=== PATIENT | male | born 1930 | race Caucasian/White ===

== ENCOUNTER 2018-03-22 16:01 | Inpatient (IN) | payer OTHER, MEDICARE ==
[2018-03-22 16:32] LABS: ADD MAN DIFF? NO
[2018-03-22 16:39] LABS: BASOPHILS % 0.4 % (0.0-2.0); EOSINOPHILS # 0.1 10^3/ul (0.0-0.5); EOSINOPHILS % 1.2 % (0.0-7.0); HEMOGLOBIN 11.4 g/dl (14.0-18.0); LYMPHOCYTES # 0.7 10^3/ul (0.8-2.9); LYMPHOCYTES % 12.7 % (15.0-51.0); MEAN CORPUSCULAR HEMOGLOBIN 31.1 pg (29.0-33.0); MEAN CORPUSCULAR HGB CONC 32.6 g/dl (32.0-37.0); MEAN CORPUSCULAR VOLUME 95.6 fl (82.0-101.0); MEAN PLATELET VOLUME 10.3 fl (7.4-10.4); MONOCYTE # 0.3 10^3/ul (0.3-0.9); MONOCYTES % 6.4 % (0.0-11.0); NEUTROPHIL # 4.1 10^3/ul (1.6-7.5); NEUTROPHILS % 79.1 % (39.0-77.0); PLATELET COUNT 117 10^3/UL (140-415); RED BLOOD COUNT 3.66 10^6/ul (4.70-6.10)
[2018-03-22 16:39] LABS: WHITE BLOOD COUNT 5.1 10^3/ul (4.8-10.8)
[2018-03-22] MEDS: SOD CHLORIDE 0.9% 1,000 ML IV (16:49)
[2018-03-22 16:58] LABS: ALANINE AMINOTRANSFERASE 14 IU/L (13-69); ALBUMIN 3.6 g/dl (3.3-4.9); ALBUMIN/GLOBULIN RATIO 1.16; ALKALINE PHOSPHATASE 74 IU/L (42-121); ANION GAP 15 (5-13); ASPARTATE AMINO TRANSFERASE 36 IU/L (15-46); BLOOD UREA NITROGEN 22 mg/dl (7-20); CALCIUM 8.5 mg/dl (8.4-10.2); CARBON DIOXIDE 25 mmol/L (21-31); CHLORIDE 101 mmol/L (97-110); CREATININE 1.11 mg/dl (0.61-1.24); GLUCOSE 237 mg/dl (70-220); SODIUM 141 mmol/L (135-144); TOTAL PROTEIN 6.7 g/dl (6.1-8.1)
[2018-03-22 17:02] LABS: INR 1.35; PROTIME 16.8 Sec (11.9-14.9); PT RATIO 1.3
[2018-03-22 17:09] LABS: B-TYPE NATRIURETIC PEPTIDE 718 PG/ML (0-450); TROPONIN-I < 0.012 ng/ml (0.000-0.120)
[2018-03-22 17:14] LABS: ADD UMIC YES; UR ASCORBIC ACID NEGATIVE (NEGATIVE); UR BACTERIA MANY /HPF (NONE SEEN); UR BILIRUBIN (Dip) NEGATIVE (NEGATIVE); UR BLOOD (Dip) 2+ mg/dL (NEGATIVE); UR CLARITY SLIGHTLY CLOUDY (CLEAR); UR COLOR AMBER (YELLOW); UR GLUCOSE (Dip) NEGATIVE (NEGATIVE); UR KETONES (Dip) TRACE mg/dL (NEGATIVE); UR LEUKOCYTE ESTERASE (Dip) 2+ Leu/ul (NEGATIVE); UR NITRITE (Dip) NEGATIVE (NEGATIVE); UR RBC 77 /HPF (0-5); UR SPECIFIC GRAVITY (Dip) 1.017 (1.003-1.030); UR TOTAL PROTEIN (Dip) NEGATIVE (NEGATIVE); UR UROBILINOGEN (Dip) NEGATIVE (NEGATIVE); UR WBC 53 /HPF (0-5)
[2018-03-22] MEDS ORDERED: ACETAMINOPHEN 325 MG TAB PO (19:00)
[2018-03-22] MEDS ORDERED: NACL 0.9% 3 ML SYG IV (19:00)
[2018-03-22] MEDS ORDERED: DOCUSATE SODIUM 100 MG CAP PO (19:00)
[2018-03-22] MEDS ORDERED: morphine 2 MG INJ IV (19:00)
[2018-03-22] MEDS ORDERED: ONDANSETRON 4 MG INJ IV (19:00)
[2018-03-22] MEDS: TAMSULOSIN (SR) 0.4 MG CAP PO (21:00)
[2018-03-22] MEDS: FAMOTIDINE 20 MG TAB PO (21:00)
[2018-03-22] MEDS ORDERED: CARBIDOPA/LEVODOPA 50-200 (CR) TAB PO (21:00)
[2018-03-22] MEDS: AMANTADINE 100 MG CAP PO (21:00)
[2018-03-22] MEDS: DEXTROSE 5%-0.45% NACL 1,000 ML IV (21:29)
[2018-03-22] MEDS: ATORVASTATIN 20 MG TAB PO (21:37)
[2018-03-22] MEDS: ENTACAPONE 200 MG TAB PO (22:48)
[2018-03-22] MEDS: CARBIDOPA/LEVODOPA 25-100 (CR) TAB PO (22:49)
[2018-03-22] MEDS: ZOLPIDEM 5 MG TAB PO (22:53)
[2018-03-23] MEDS ORDERED: ALBUMIN HUMAN 5% 250 ML INJ (07:00)
[2018-03-23] MEDS ORDERED: CEFAZOLIN 1 GM INJ (07:00)
[2018-03-23] MEDS ORDERED: METOPROLOL 5 MG INJ (07:00)
[2018-03-23] MEDS ORDERED: ALBUMIN HUMAN 25% 100 ML INJ (07:00)
[2018-03-23] MEDS ORDERED: DESFLURANE 15 MIN (07:00)
[2018-03-23] MEDS ORDERED: NA BICARBONATE 8.4% 50 ML SYG (07:00)
[2018-03-23] MEDS ORDERED: ROCURONIUM 50 MG INJ ×2 (07:00→14:52)
[2018-03-23] MEDS ORDERED: PROPOFOL 1000 MG INJ (07:00)
[2018-03-23] MEDS ORDERED: CA CHLORIDE 10% 10 ML SYRINGE (07:00)
[2018-03-23] MEDS ORDERED: ETOMIDATE 20 MG INJ (07:00)
[2018-03-23] MEDS: DEXTROSE 5%-0.45% NACL 1,000 ML IV ×2 (08:04→23:07)
[2018-03-23] MEDS: LISINOPRIL 5 MG TAB PO (09:00)
[2018-03-23] MEDS: ATENOLOL 50 MG TAB PO (09:00)
[2018-03-23] MEDS: AMANTADINE 100 MG CAP PO ×2 (11:50→22:52)
[2018-03-23] MEDS: ENTACAPONE 200 MG TAB PO ×4 (11:50→22:54)
[2018-03-23] MEDS: CARBIDOPA/LEVODOPA 25-100 (CR) TAB PO ×4 (11:51→22:54)
[2018-03-23] MEDS: PRAMIPEXOLE 0.25 MG TAB PO (11:51)
[2018-03-23] MEDS ORDERED: FENTAnyl 50 MCG/ML VIAL (14:49)
[2018-03-23] MEDS ORDERED: MIDAZOLAM 1 MG/ML 2 ML INJ (14:50)
[2018-03-23] MEDS ORDERED: ONDANSETRON 4 MG INJ (14:51)
[2018-03-23] MEDS ORDERED: SUCCINYLCHOLINE CHLORIDE 100 MG/5 ML SYG IV (14:52)
[2018-03-23] MEDS ORDERED: PROPOFOL 20 ML (14:52)
[2018-03-23] MEDS ORDERED: LIDOCAINE 2% (SDV) 5 ML INJ (14:52)
[2018-03-23] MEDS ORDERED: morphine SULFATE/PF (10 MG/10 ML) INJ (16:20)
[2018-03-23] MEDS ORDERED: EPINEPHrine 1 MG INJ (16:21)
[2018-03-23] MEDS: TRANEXAMIC ACID 1,000 MG in NS 100 ML INTRA-OP X1 IVPB (17:00)
[2018-03-23] MEDS: VANCOMYCIN 1 GM (PMX) 250 ML IVPB (17:00)
[2018-03-23] MEDS: TRANEXAMIC ACID 1,000 MG in NS 100 ML PRE-OP X1 IVPB (17:00)
[2018-03-23] MEDS ORDERED: DOPamine-D5W 1.6 MG/ML 250 ML (18:44)
[2018-03-23] MEDS ORDERED: PHENYLephrine 10 MG INJ (18:55)
[2018-03-23] MEDS: SOD CHLORIDE 0.9% 250 ML IV* (18:56)
[2018-03-23 19:33] LABS: Allen Test ACCEPTAB; Arterial Base Excess -1.2 mmol/L (-3.0-3); Arterial Blood Gas Oxygen Sat 99.1 mmHG (95.0-100.0); Arterial COHb 0.3 % (0.0-3.0); Arterial Fraction of Oxyhgb 98.4 % (93.0-99.0); Arterial HCO3 22.4 mmol/L (22.0-26.0); Arterial MetHb 0.4 % (0.0-1.5); Arterial pCO2 33.1 mmhg (35-45); MODE VENT - ANESTH; Site Right Radial
[2018-03-23 19:35] LABS: ADD MAN DIFF? NO
[2018-03-23 19:43] LABS: ABNORMAL IP MESSAGE 1; BASOPHILS % 0.5 % (0.0-2.0); EOSINOPHILS # 0.1 10^3/ul (0.0-0.5); EOSINOPHILS % 1.8 % (0.0-7.0); HEMATOCRIT 25.1 % (42.0-52.0); HEMOGLOBIN 8.4 g/dl (14.0-18.0); LYMPHOCYTES # 0.9 10^3/ul (0.8-2.9); LYMPHOCYTES % 24.6 % (15.0-51.0); MEAN CORPUSCULAR HEMOGLOBIN 32.1 pg (29.0-33.0); MEAN CORPUSCULAR HGB CONC 33.5 g/dl (32.0-37.0); MEAN CORPUSCULAR VOLUME 95.8 fl (82.0-101.0); MEAN PLATELET VOLUME 10.6 fl (7.4-10.4); MONOCYTE # 0.2 10^3/ul (0.3-0.9); MONOCYTES % 6.3 % (0.0-11.0); NEUTROPHIL # 2.5 10^3/ul (1.6-7.5); NEUTROPHILS % 66.5 % (39.0-77.0); PLATELET COUNT 88 10^3/UL (140-415); POSITIVE DIFF @See below; RED BLOOD COUNT 2.62 10^6/ul (4.70-6.10); RED CELL DISTRIBUTION WIDTH 12.8 % (11.5-14.5)
[2018-03-23 19:43] LABS: WHITE BLOOD COUNT 3.8 10^3/ul (4.8-10.8)
[2018-03-23 19:57] LABS: ALANINE AMINOTRANSFERASE 17 IU/L (13-69); ALBUMIN 3.8 g/dl (3.3-4.9); ALBUMIN/GLOBULIN RATIO 1.65; ALKALINE PHOSPHATASE 60 IU/L (42-121); ANION GAP 11 (5-13); ASPARTATE AMINO TRANSFERASE 30 IU/L (15-46); BILIRUBIN,INDIRECT 0.4 mg/dl (0-1.1); BILIRUBIN,TOTAL 1.1 mg/dl (0.2-1.3); BLOOD UREA NITROGEN 12 mg/dl (7-20); CALCIUM 10.3 mg/dl (8.4-10.2); CARBON DIOXIDE 24 mmol/L (21-31); CHLORIDE 108 mmol/L (97-110); CREATININE 0.69 mg/dl (0.61-1.24); GLUCOSE 115 mg/dl (70-220); POTASSIUM 3.3 mmol/L (3.5-5.1); SODIUM 143 mmol/L (135-144); TOTAL PROTEIN 6.1 g/dl (6.1-8.1)
[2018-03-23 19:58] LABS: INR 1.39; PROTIME 17.2 Sec (11.9-14.9); PT RATIO 1.3
[2018-03-23 19:59] LABS: PARTIAL THROMBOPLASTIN TIME 41.6 Sec (23.0-35.0)
[2018-03-23] MEDS ORDERED: MAGNESIUM HYDROXIDE 30ML CUP PO (21:00)
[2018-03-23] MEDS ORDERED: HYDROmorphONE 1 MG/ML SYG IV (21:00)
[2018-03-23] MEDS ORDERED: BISACODYL 10 MG SUPP PR (21:00)
[2018-03-23] MEDS ORDERED: NALOXONE (0.4 MG/ML) INJ IV (21:00)
[2018-03-23] MEDS ORDERED: NACL 0.9% 3 ML SYG IV (21:00)
[2018-03-23] MEDS ORDERED: oxyCODONE 5 MG TAB PO ×3 (21:00)
[2018-03-23] MEDS ORDERED: NA PHOSPHATE/BIPHOS 133 ML ENEMA PR (21:00)
[2018-03-23] MEDS ORDERED: SENNA/DOCUSATE NA (8.6MG/50MG) TAB PO (21:00)
[2018-03-23] MEDS ORDERED: PHENYLephrine (100 MCG/ML) 5ML SYG (21:07)
[2018-03-23 21:20] LABS: MAGNESIUM 2.2 mg/dl (1.7-2.5)
[2018-03-23 21:32] LABS: TROPONIN-I 0.013 ng/ml (0.000-0.120)
[2018-03-23] MEDS: METOPROLOL 5 MG INJ IV ×3 (21:51→22:36)
[2018-03-23] MEDS ORDERED: morphine 4 MG/ML VIAL IV (22:00)
[2018-03-23] MEDS: POTASSIUM CHLORIDE 100 ML IVPB (22:06)
[2018-03-23] MEDS: CEFAZOLIN 2 GM/50 ML (PMX) 50 ML IVPB (22:13)
[2018-03-23] MEDS: ACETAMINOPHEN 1000MG/100ML IV 100 ML IVPB (22:50)
[2018-03-23] MEDS: ASPIRIN 325 MG TAB PO (22:52)
[2018-03-23] MEDS: DOCUSATE SODIUM 100 MG CAP PO (22:53)
[2018-03-23] MEDS: GABAPENTIN 300 MG CAP PO (22:54)
[2018-03-23] MEDS: FAMOTIDINE 20 MG TAB PO (22:54)
[2018-03-23] MEDS: METOPROLOL 25 MG TAB PO (23:04)
[2018-03-23] MEDS: ATORVASTATIN 40 MG TAB PO (23:11)
[2018-03-23] MEDS: SOD CHLORIDE 0.9% 1,000 ML IV (23:12)
[2018-03-23] MEDS: TAMSULOSIN (SR) 0.4 MG CAP PO (23:12)
[2018-03-23 23:27] LABS: IMMEDIATE SPIN CROSSMATCH 1 3
[2018-03-24] MEDS: POTASSIUM CHLORIDE 100 ML IVPB (00:25)
[2018-03-24] MEDS ORDERED: PROPOFOL 100 ML IV (01:30)
[2018-03-24] MEDS: PROPOFOL 100 ML IV (02:15)
[2018-03-24] MEDS: PHENYLephrine 40 MG in DEXTROSE 5% 246 ML IV (03:12)
[2018-03-24 03:20] LABS: Arterial Base Excess -6.7 mmol/L (-3.0-3); Arterial Blood Gas Oxygen Sat 99.2 mmHG (95.0-100.0); Arterial COHb 0.3 % (0.0-3.0); Arterial Fraction of Oxyhgb 98.5 % (93.0-99.0); Arterial HCO3 18.5 mmol/L (22.0-26.0); Arterial MetHb 0.4 % (0.0-1.5); MODE VENT - AC; Site A-Line
[2018-03-24 04:56] LABS: ADD MAN DIFF? NO
[2018-03-24 04:58] LABS: WHITE BLOOD COUNT 4.3 10^3/ul (4.8-10.8)
[2018-03-24 04:58] LABS: ABNORMAL IP MESSAGE 1; BASOPHILS % 0.2 % (0.0-2.0); HEMATOCRIT 27.7 % (42.0-52.0); HEMOGLOBIN 9.1 g/dl (14.0-18.0); LYMPHOCYTES # 0.2 10^3/ul (0.8-2.9); LYMPHOCYTES % 4.2 % (15.0-51.0); MEAN CORPUSCULAR HEMOGLOBIN 30.5 pg (29.0-33.0); MEAN CORPUSCULAR HGB CONC 32.9 g/dl (32.0-37.0); MONOCYTE # 0.2 10^3/ul (0.3-0.9); MONOCYTES % 4.4 % (0.0-11.0); NEUTROPHIL # 3.9 10^3/ul (1.6-7.5); PLATELET COUNT 95 10^3/UL (140-415); POSITIVE DIFF @See below; RED BLOOD COUNT 2.98 10^6/ul (4.70-6.10); RED CELL DISTRIBUTION WIDTH 13.9 % (11.5-14.5)
[2018-03-24 05:24] LABS: ANION GAP 10 (5-13); BLOOD UREA NITROGEN 15 mg/dl (7-20); CALCIUM 8.6 mg/dl (8.4-10.2); CARBON DIOXIDE 21 mmol/L (21-31); CHLORIDE 109 mmol/L (97-110); CREATININE 0.73 mg/dl (0.61-1.24); GLUCOSE 231 mg/dl (70-220); POTASSIUM 5.2 mmol/L (3.5-5.1); SODIUM 140 mmol/L (135-144)
[2018-03-24 05:30] LABS: INR 1.36; PROTIME 16.9 Sec (11.9-14.9); PT RATIO 1.3
[2018-03-24 05:34] LABS: TROPONIN-I 0.014 ng/ml (0.000-0.120)
[2018-03-24] MEDS: ACETAMINOPHEN 1000MG/100ML IV 100 ML IVPB ×2 (05:46→12:24)
[2018-03-24] MEDS: CEFAZOLIN 2 GM/50 ML (PMX) 50 ML IVPB ×2 (05:46→12:31)
[2018-03-24] MEDS: PANTOPRAZOLE (EC) 40 MG TAB PO (06:13)
[2018-03-24] MEDS: VANCOMYCIN 1 GM (PMX) 250 ML IVPB ×2 (06:46→17:19)
[2018-03-24] MEDS: DEXTROSE 5%-0.45% NACL 1,000 ML IV (07:49)
[2018-03-24] MEDS: CARBIDOPA/LEVODOPA 25-100 (CR) TAB PO ×4 (08:46→20:42)
[2018-03-24] MEDS: ASPIRIN 81 MG TAB PO (08:46)
[2018-03-24] MEDS: ENTACAPONE 200 MG TAB PO ×4 (08:47→20:43)
[2018-03-24] MEDS: DOCUSATE SODIUM 100 MG CAP PO ×2 (08:47→20:42)
[2018-03-24] MEDS: PRAMIPEXOLE 0.25 MG TAB PO (08:48)
[2018-03-24] MEDS: SOD CHLORIDE 0.9% 1,000 ML IV ×2 (08:58→20:55)
[2018-03-24] MEDS: METOPROLOL 25 MG TAB PO (09:00)
[2018-03-24] MEDS: LISINOPRIL 5 MG TAB PO (09:00)
[2018-03-24] MEDS: ATENOLOL 50 MG TAB PO (09:00)
[2018-03-24] MEDS: AMANTADINE 100 MG CAP PO ×2 (10:17→20:42)
[2018-03-24 13:09] LABS: Allen Test ACCEPTAB; Arterial Base Excess -2.6 mmol/L (-3.0-3); Arterial Blood Gas Oxygen Sat 98.3 mmHG (95.0-100.0); Arterial COHb 0.3 % (0.0-3.0); Arterial Fraction of Oxyhgb 97.7 % (93.0-99.0); Arterial HCO3 21.5 mmol/L (22.0-26.0); Arterial MetHb 0.3 % (0.0-1.5); Arterial pCO2 34.4 mmhg (35-45); Blood Gas PS 10; MODE VENT - CPAP; Site Right Radial
[2018-03-24] MEDS: ZOLPIDEM 5 MG TAB PO (20:42)
[2018-03-24] MEDS: ATORVASTATIN 40 MG TAB PO (20:42)
[2018-03-24] MEDS: FAMOTIDINE 20 MG TAB PO (20:42)
[2018-03-24] MEDS: TAMSULOSIN (SR) 0.4 MG CAP PO (20:43)
[2018-03-24] MEDS: GABAPENTIN 300 MG CAP PO (20:43)
[2018-03-24] MEDS ORDERED: ONDANSETRON 4 MG INJ IV (21:00)
[2018-03-24] MEDS: ACETAMINOPHEN 500 MG TAB PO (22:54)
[2018-03-25] MEDS: DEXTROSE 5%-0.45% NACL 1,000 ML IV (01:27)
[2018-03-25 04:54] LABS: ADD MAN DIFF? NO
[2018-03-25 05:00] LABS: WHITE BLOOD COUNT 3.4 10^3/ul (4.8-10.8)
[2018-03-25 05:00] LABS: ABNORMAL IP MESSAGE 1; BASOPHILS % 0.3 % (0.0-2.0); EOSINOPHILS # 0.1 10^3/ul (0.0-0.5); EOSINOPHILS % 1.5 % (0.0-7.0); HEMATOCRIT 24.7 % (42.0-52.0); HEMOGLOBIN 8.2 g/dl (14.0-18.0); LYMPHOCYTES # 0.5 10^3/ul (0.8-2.9); MEAN CORPUSCULAR HEMOGLOBIN 30.8 pg (29.0-33.0); MEAN CORPUSCULAR HGB CONC 33.2 g/dl (32.0-37.0); MEAN CORPUSCULAR VOLUME 92.9 fl (82.0-101.0); MEAN PLATELET VOLUME 10.3 fl (7.4-10.4); MONOCYTE # 0.3 10^3/ul (0.3-0.9); MONOCYTES % 7.7 % (0.0-11.0); NEUTROPHIL # 2.6 10^3/ul (1.6-7.5); NEUTROPHILS % 75.4 % (39.0-77.0); PLATELET COUNT 104 10^3/UL (140-415); POSITIVE DIFF @See below; RED BLOOD COUNT 2.66 10^6/ul (4.70-6.10); RED CELL DISTRIBUTION WIDTH 14.2 % (11.5-14.5)
[2018-03-25 05:18] LABS: LYMPHOCYTES % 14.8 % (15.0-51.0)
[2018-03-25 05:19] LABS: INR 1.33; PROTIME 16.6 Sec (11.9-14.9); PT RATIO 1.3
[2018-03-25 05:20] LABS: ANION GAP 6 (5-13); BLOOD UREA NITROGEN 11 mg/dl (7-20); CALCIUM 8.3 mg/dl (8.4-10.2); CARBON DIOXIDE 26 mmol/L (21-31); CHLORIDE 111 mmol/L (97-110); CREATININE 0.66 mg/dl (0.61-1.24); GLUCOSE 94 mg/dl (70-220); POTASSIUM 3.7 mmol/L (3.5-5.1); SODIUM 143 mmol/L (135-144)
[2018-03-25] MEDS: PANTOPRAZOLE (EC) 40 MG TAB PO (05:27)
[2018-03-25] MEDS: ACETAMINOPHEN 500 MG TAB PO ×3 (05:27→21:58)
[2018-03-25] MEDS: SOD CHLORIDE 0.9% 1,000 ML IV (07:06)
[2018-03-25] MEDS: PRAMIPEXOLE 0.25 MG TAB PO (08:46)
[2018-03-25] MEDS: ENTACAPONE 200 MG TAB PO ×4 (08:46→20:44)
[2018-03-25] MEDS: AMANTADINE 100 MG CAP PO ×2 (08:46→20:43)
[2018-03-25] MEDS: ASPIRIN 81 MG TAB PO (08:46)
[2018-03-25] MEDS: DOCUSATE SODIUM 100 MG CAP PO ×2 (08:46→20:44)
[2018-03-25] MEDS: METOPROLOL 25 MG TAB PO ×2 (08:47→20:43)
[2018-03-25] MEDS: CARBIDOPA/LEVODOPA 25-100 (CR) TAB PO ×4 (10:16→20:44)
[2018-03-25 11:26] LABS: HEMOGLOBIN A1C 5.5 % (0-5.9)
[2018-03-25] MEDS ORDERED: GLUCOSE GEL 15 GRAM TUBE PO ×2 (11:30)
[2018-03-25] MEDS ORDERED: GLUCOSE GEL 15 GRAM TUBE BUCCAL (11:30)
[2018-03-25] MEDS ORDERED: GLUCAGON 1 MG INJ IM (11:30)
[2018-03-25] MEDS ORDERED: DEXTROSE 50% 50 ML SYRINGE IV ×2 (11:30)
[2018-03-25] MEDS: INSULIN ASPART [NOVOLOG] 3 ML PEN SC ×3 (13:00→20:50)
[2018-03-25] MEDS: FAMOTIDINE 20 MG TAB PO (20:43)
[2018-03-25] MEDS: ZOLPIDEM 5 MG TAB PO (20:43)
[2018-03-25] MEDS: ATORVASTATIN 40 MG TAB PO (20:43)
[2018-03-25] MEDS: GABAPENTIN 300 MG CAP PO (20:44)
[2018-03-25] MEDS: TAMSULOSIN (SR) 0.4 MG CAP PO (20:44)
[2018-03-25] MEDS ORDERED: morphine LIQ (10 MG/5 ML) CUP PO (22:00)
[2018-03-25] MEDS: DIPHENHYDRAMINE 50 MG INJ IV (22:06)
[2018-03-26] MEDS: INSULIN ASPART [NOVOLOG] 3 ML PEN SC ×6 (00:45→23:32)
[2018-03-26] MEDS: PANTOPRAZOLE (EC) 40 MG TAB PO (05:08)
[2018-03-26] MEDS: ACETAMINOPHEN 500 MG TAB PO ×3 (05:09→21:47)
[2018-03-26 05:13] LABS: ADD MAN DIFF? NO
[2018-03-26 05:19] LABS: ABNORMAL IP MESSAGE 1; BASOPHILS % 0.5 % (0.0-2.0); EOSINOPHILS # 0.2 10^3/ul (0.0-0.5); EOSINOPHILS % 4.1 % (0.0-7.0); HEMATOCRIT 29.3 % (42.0-52.0); HEMOGLOBIN 9.5 g/dl (14.0-18.0); LYMPHOCYTES # 0.6 10^3/ul (0.8-2.9); LYMPHOCYTES % 15.9 % (15.0-51.0); MEAN CORPUSCULAR HEMOGLOBIN 30.4 pg (29.0-33.0); MEAN CORPUSCULAR HGB CONC 32.4 g/dl (32.0-37.0); MEAN CORPUSCULAR VOLUME 93.9 fl (82.0-101.0); MEAN PLATELET VOLUME 10.5 fl (7.4-10.4); MONOCYTE # 0.3 10^3/ul (0.3-0.9); MONOCYTES % 7.6 % (0.0-11.0); NEUTROPHIL # 2.7 10^3/ul (1.6-7.5); NEUTROPHILS % 71.6 % (39.0-77.0); PLATELET COUNT 142 10^3/UL (140-415); POSITIVE DIFF @See below; RED BLOOD COUNT 3.12 10^6/ul (4.70-6.10); RED CELL DISTRIBUTION WIDTH 13.8 % (11.5-14.5)
[2018-03-26 05:19] LABS: WHITE BLOOD COUNT 3.7 10^3/ul (4.8-10.8)
[2018-03-26 05:32] LABS: ANION GAP 9 (5-13); BLOOD UREA NITROGEN 15 mg/dl (7-20); CALCIUM 8.6 mg/dl (8.4-10.2); CARBON DIOXIDE 28 mmol/L (21-31); CHLORIDE 107 mmol/L (97-110); CREATININE 0.72 mg/dl (0.61-1.24); GLUCOSE 75 mg/dl (70-220); POTASSIUM 3.5 mmol/L (3.5-5.1); SODIUM 144 mmol/L (135-144)
[2018-03-26 05:41] LABS: INR 1.18; PROTIME 15.1 Sec (11.9-14.9); PT RATIO 1.2
[2018-03-26] MEDS: DOCUSATE SODIUM 10 MG/ML (10ML CUP) NGT ×2 (09:00→21:00)
[2018-03-26] MEDS: CARBIDOPA/LEVODOPA 25-100 (CR) TAB PO (10:13)
[2018-03-26] MEDS: ASPIRIN 81 MG TAB PO (10:17)
[2018-03-26] MEDS: ENTACAPONE 200 MG TAB PO ×4 (10:17→21:47)
[2018-03-26] MEDS: METOPROLOL 25 MG TAB PO ×2 (10:18→21:48)
[2018-03-26] MEDS: ENOXAPARIN 40 MG/0.4 ML SYG SC (10:23)
[2018-03-26] MEDS: AMANTADINE 100 MG/10 ML POSYR PO ×2 (12:59→21:54)
[2018-03-26] MEDS: NEOMYC/POLYMYX/BACIT 30 GM OINT TOP (12:59)
[2018-03-26] MEDS: CARBIDOPA/LEVODOPA (25/100) TAB PO ×3 (14:43→21:49)
[2018-03-26] MEDS: PRAMIPEXOLE 0.25 MG TAB PO (14:45)
[2018-03-26] MEDS: POTASSIUM CHLORIDE 20 MEQ POWDER FOR ORAL SOLN JT (16:04)
[2018-03-26] MEDS ORDERED: AMANTADINE 100 MG/10 ML POSYR PO (21:00)
[2018-03-26] MEDS: ATORVASTATIN 40 MG TAB PO (21:47)
[2018-03-26] MEDS: GABAPENTIN 300 MG CAP PO (21:47)
[2018-03-26] MEDS: TAMSULOSIN (SR) 0.4 MG CAP PO (21:47)
[2018-03-26] MEDS: FAMOTIDINE 20 MG TAB PO (21:49)
[2018-03-27 04:59] LABS: ADD MAN DIFF? NO
[2018-03-27 05:07] LABS: ABNORMAL IP MESSAGE 1; BASOPHILS % 0.2 % (0.0-2.0); EOSINOPHILS # 0.1 10^3/ul (0.0-0.5); EOSINOPHILS % 3.3 % (0.0-7.0); HEMATOCRIT 28.8 % (42.0-52.0); HEMOGLOBIN 9.5 g/dl (14.0-18.0); LYMPHOCYTES # 0.5 10^3/ul (0.8-2.9); LYMPHOCYTES % 11.1 % (15.0-51.0); MEAN CORPUSCULAR HEMOGLOBIN 30.4 pg (29.0-33.0); MEAN PLATELET VOLUME 10.1 fl (7.4-10.4); MONOCYTE # 0.3 10^3/ul (0.3-0.9); MONOCYTES % 7.1 % (0.0-11.0); NEUTROPHIL # 3.3 10^3/ul (1.6-7.5); NEUTROPHILS % 77.8 % (39.0-77.0); PLATELET COUNT 163 10^3/UL (140-415); POSITIVE DIFF @See below; RED BLOOD COUNT 3.13 10^6/ul (4.70-6.10); RED CELL DISTRIBUTION WIDTH 13.4 % (11.5-14.5)
[2018-03-27 05:07] LABS: WHITE BLOOD COUNT 4.3 10^3/ul (4.8-10.8)
[2018-03-27 05:29] LABS: ANION GAP 10 (5-13); BLOOD UREA NITROGEN 18 mg/dl (7-20); CALCIUM 8.2 mg/dl (8.4-10.2); CARBON DIOXIDE 25 mmol/L (21-31); CHLORIDE 109 mmol/L (97-110); CREATININE 0.69 mg/dl (0.61-1.24); GLUCOSE 95 mg/dl (70-220); POTASSIUM 3.3 mmol/L (3.5-5.1); SODIUM 144 mmol/L (135-144)
[2018-03-27] MEDS: INSULIN ASPART [NOVOLOG] 3 ML PEN SC ×3 (06:00→17:51)
[2018-03-27] MEDS: PANTOPRAZOLE (EC) 40 MG TAB PO ×2 (06:00→11:30)
[2018-03-27] MEDS: ACETAMINOPHEN 500 MG TAB PO ×2 (06:00→14:56)
[2018-03-27 06:06] LABS: INR 1.17; PT RATIO 1.2
[2018-03-27] MEDS: CARBIDOPA/LEVODOPA (25/100) TAB PO ×3 (09:00→17:28)
[2018-03-27] MEDS: DOCUSATE SODIUM 10 MG/ML (10ML CUP) NGT (11:30)
[2018-03-27] MEDS: ASPIRIN 81 MG TAB PO (11:31)
[2018-03-27] MEDS: AMANTADINE 100 MG/10 ML POSYR PO (11:31)
[2018-03-27] MEDS: ENOXAPARIN 40 MG/0.4 ML SYG SC (11:33)
[2018-03-27] MEDS: INFLUENZA VIRUS VACCINE 0.5 ML (DISPENSING) IM* (11:34)
[2018-03-27] MEDS: METOPROLOL 25 MG TAB PO (11:34)
[2018-03-27] MEDS: NEOMYC/POLYMYX/BACIT 30 GM OINT TOP (12:42)
[2018-03-27] MEDS: PRAMIPEXOLE 0.25 MG TAB PO (12:42)
[2018-03-27] MEDS: ENTACAPONE 200 MG TAB PO ×3 (12:42→17:30)
[2018-03-27] MEDS: POTASSIUM CHLORIDE (SR) 20 MEQ TAB PO ×2 (12:43→14:55)
== END 2018-03-27 19:38 | DRG 469 ==
LOC: MS1 03-26 02:31 → E/R 16:01 → ICU 03-23 20:44 → MS1 19:26
PROC: 0SRS019 Replacement of Left Hip Joint, Femoral Surface with Metal Synthetic Substitute, Cemented, Open Approach (ICD-10-PCS; principal; 2018-03-23 15:30)
PROC: 30233N1 Transfusion of Nonautologous Red Blood Cells into Peripheral Vein, Percutaneous Approach (ICD-10-PCS; 2018-03-23 15:30)
PROC: 5A1935Z Respiratory Ventilation, Less than 24 Consecutive Hours (ICD-10-PCS; 2018-03-23 16:21)
DX: S72.012A Unspecified intracapsular fracture of left femur, initial encounter for closed fracture (principal); J95.821 Acute postprocedural respiratory failure; E11.40 Type 2 diabetes mellitus with diabetic neuropathy, unspecified; E78.5 Hyperlipidemia, unspecified; D64.9 Anemia, unspecified; D69.6 Thrombocytopenia, unspecified; G20 Parkinson's disease; F02.80 Dementia in other diseases classified elsewhere, unspecified severity, without behavioral disturbance, psychotic disturbance, mood disturbance, and anxiety; I95.9 Hypotension, unspecified; I49.3 Ventricular premature depolarization; I10 Essential (primary) hypertension; N40.0 Benign prostatic hyperplasia without lower urinary tract symptoms; R13.10 Dysphagia, unspecified; R41.82 Altered mental status, unspecified; W01.0XXA Fall on same level from slipping, tripping and stumbling without subsequent striking against object, initial encounter; Y92.002 Bathroom of unspecified non-institutional (private) residence as the place of occurrence of the external cause; Z79.84 Long term (current) use of oral hypoglycemic drugs; Z79.82 Long term (current) use of aspirin
CPT/HCPCS: 36430; 36600; 70450; 71045; 72170; 73500; 73510; 73700; 74018; 80048; 80053; 81001; 82803; 82962; 83036; 83735; 83880; 84484; 85025; 85610; 85730; 86850; 86900; 86901; 86920; 87081; 88305; 88311; 90686; 92526; 92610; 93005; 93306; 94002; 94003; 94770; 97116; 97163; 97167; 97530; 97535; 99285-25

== ENCOUNTER 2018-04-20 16:37 | Inpatient (IN) | payer OTHER ==
[2018-04-20 17:03] LABS: IMMEDIATE SPIN CROSSMATCH 1 6
[2018-04-20 17:06] LABS: ADD MAN DIFF? NO
[2018-04-20 17:09] LABS: WHITE BLOOD COUNT 12.5 10^3/ul (4.8-10.8)
[2018-04-20 17:09] LABS: BASOPHILS % 0.3 % (0.0-2.0); EOSINOPHILS # 0.1 10^3/ul (0.0-0.5); EOSINOPHILS % 0.5 % (0.0-7.0); HEMATOCRIT 40.6 % (42.0-52.0); HEMOGLOBIN 12.4 g/dl (14.0-18.0); LYMPHOCYTES # 3.3 10^3/ul (0.8-2.9); LYMPHOCYTES % 26.8 % (15.0-51.0); MEAN CORPUSCULAR HEMOGLOBIN 29.2 pg (29.0-33.0); MEAN CORPUSCULAR HGB CONC 30.5 g/dl (32.0-37.0); MEAN CORPUSCULAR VOLUME 95.8 fl (82.0-101.0); MEAN PLATELET VOLUME 10.8 fl (7.4-10.4); MONOCYTE # 0.5 10^3/ul (0.3-0.9); NEUTROPHIL # 8.5 10^3/ul (1.6-7.5); NEUTROPHILS % 67.9 % (39.0-77.0); PLATELET COUNT 292 10^3/UL (140-415); RED BLOOD COUNT 4.24 10^6/ul (4.70-6.10); RED CELL DISTRIBUTION WIDTH 15.1 % (11.5-14.5)
[2018-04-20] MEDS: SOD CHLORIDE 0.9% 1,000 ML IV ×2 (17:22→23:17)
[2018-04-20] MEDS: NORepinephrine 8MG/250 ML (PMX 250 ML IV (17:22)
[2018-04-20 17:28] LABS: INR 1.17; PT RATIO 1.2
[2018-04-20 17:29] LABS: PARTIAL THROMBOPLASTIN TIME 34.4 Sec (23.0-35.0)
[2018-04-20 17:37] LABS: ALBUMIN 3.8 g/dl (3.3-4.9); ALBUMIN/GLOBULIN RATIO 1.08; ALKALINE PHOSPHATASE 133 IU/L (42-121); ANION GAP 15 (5-13); ASPARTATE AMINO TRANSFERASE 24 IU/L (15-46); BILIRUBIN,INDIRECT 0.1 mg/dl (0-1.1); BILIRUBIN,TOTAL 0.1 mg/dl (0.2-1.3); BLOOD UREA NITROGEN 30 mg/dl (7-20); CARBON DIOXIDE 25 mmol/L (21-31); CHLORIDE 110 mmol/L (97-110); CREATININE 1.41 mg/dl (0.61-1.24); GLUCOSE 208 mg/dl (70-220); POTASSIUM 3.7 mmol/L (3.5-5.1); SODIUM 150 mmol/L (135-144); TOTAL PROTEIN 7.3 g/dl (6.1-8.1)
[2018-04-20 17:47] LABS: TROPONIN-I < 0.012 ng/ml (0.000-0.120)
[2018-04-20 18:02] LABS: ALANINE AMINOTRANSFERASE < 6 IU/L (13-69)
[2018-04-20 19:03] LABS: ADD MAN DIFF? NO
[2018-04-20 19:07] LABS: WHITE BLOOD COUNT 12.8 10^3/ul (4.8-10.8)
[2018-04-20 19:07] LABS: BASOPHILS % 0.2 % (0.0-2.0); EOSINOPHILS % 0.1 % (0.0-7.0); HEMATOCRIT 42.7 % (42.0-52.0); HEMOGLOBIN 13.4 g/dl (14.0-18.0); LYMPHOCYTES # 0.7 10^3/ul (0.8-2.9); LYMPHOCYTES % 5.8 % (15.0-51.0); MEAN CORPUSCULAR HEMOGLOBIN 29.3 pg (29.0-33.0); MEAN CORPUSCULAR HGB CONC 31.4 g/dl (32.0-37.0); MEAN CORPUSCULAR VOLUME 93.4 fl (82.0-101.0); MEAN PLATELET VOLUME 10.8 fl (7.4-10.4); MONOCYTE # 0.4 10^3/ul (0.3-0.9); MONOCYTES % 2.9 % (0.0-11.0); NEUTROPHIL # 11.6 10^3/ul (1.6-7.5); NEUTROPHILS % 90.2 % (39.0-77.0); PLATELET COUNT 230 10^3/UL (140-415); RED BLOOD COUNT 4.57 10^6/ul (4.70-6.10); RED CELL DISTRIBUTION WIDTH 15.2 % (11.5-14.5)
[2018-04-20] MEDS: CEFTRIAXONE 1 GM/50 ML (PMX) 50 ML IVPB (19:42)
[2018-04-20] MEDS ORDERED: NORepinephrine 8MG/250 ML (PMX 250 ML IV (22:30)
[2018-04-20] MEDS: PRAMIPEXOLE 0.25 MG TAB PO (22:30)
[2018-04-20] MEDS: PANTOPRAZOLE 40 MG INJ IV (23:21)
[2018-04-21] MEDS: PANTOPRAZOLE 40 MG INJ IV ×2 (05:58→17:21)
[2018-04-21] MEDS: PRAMIPEXOLE 0.25 MG TAB PO ×3 (06:15→17:21)
[2018-04-21 06:28] LABS: ADD MAN DIFF? NO
[2018-04-21 06:33] LABS: BASOPHILS % 0.4 % (0.0-2.0); EOSINOPHILS % 0.3 % (0.0-7.0); HEMATOCRIT 37.7 % (42.0-52.0); HEMOGLOBIN 12.1 g/dl (14.0-18.0); LYMPHOCYTES # 0.8 10^3/ul (0.8-2.9); MEAN CORPUSCULAR HEMOGLOBIN 29.4 pg (29.0-33.0); MEAN CORPUSCULAR HGB CONC 32.1 g/dl (32.0-37.0); MEAN CORPUSCULAR VOLUME 91.5 fl (82.0-101.0); MEAN PLATELET VOLUME 10.7 fl (7.4-10.4); MONOCYTE # 0.4 10^3/ul (0.3-0.9); NEUTROPHIL # 8.8 10^3/ul (1.6-7.5); NEUTROPHILS % 87.1 % (39.0-77.0); PLATELET COUNT 169 10^3/UL (140-415); RED BLOOD COUNT 4.12 10^6/ul (4.70-6.10); RED CELL DISTRIBUTION WIDTH 15.5 % (11.5-14.5)
[2018-04-21 06:33] LABS: WHITE BLOOD COUNT 10.1 10^3/ul (4.8-10.8)
[2018-04-21] MEDS: SOD CHLORIDE 0.9% 1,000 ML IV (06:35)
[2018-04-21 07:43] LABS: ANION GAP 6 (5-13); BLOOD UREA NITROGEN 27 mg/dl (7-20); CARBON DIOXIDE 26 mmol/L (21-31); CHLORIDE 118 mmol/L (97-110); CREATININE 0.83 mg/dl (0.61-1.24); GLUCOSE 136 mg/dl (70-220); POTASSIUM 3.2 mmol/L (3.5-5.1); SODIUM 150 mmol/L (135-144)
[2018-04-21] MEDS: AMANTADINE 100 MG CAP PO ×2 (08:26→20:48)
[2018-04-21] MEDS: ENTACAPONE 200 MG TAB PO ×4 (08:26→20:49)
[2018-04-21] MEDS: CARBIDOPA/LEVODOPA (25/100) TAB PO ×4 (08:26→20:48)
[2018-04-21] MEDS: DOCUSATE SODIUM 100 MG CAP PO ×2 (10:00→20:49)
[2018-04-21] MEDS: D5W + KCL 20 MEQ 1,000 ML IV ×2 (11:55→19:32)
[2018-04-21] MEDS: ATORVASTATIN 20 MG TAB PO (20:48)
[2018-04-21] MEDS: TAMSULOSIN (SR) 0.4 MG CAP PO (20:49)
[2018-04-22] MEDS: D5W + KCL 20 MEQ 1,000 ML IV ×3 (03:12→19:25)
[2018-04-22 05:41] LABS: ANION GAP 6 (5-13); BLOOD UREA NITROGEN 17 mg/dl (7-20); CALCIUM 8.3 mg/dl (8.4-10.2); CARBON DIOXIDE 26 mmol/L (21-31); CHLORIDE 114 mmol/L (97-110); CREATININE 0.65 mg/dl (0.61-1.24); GLUCOSE 133 mg/dl (70-220); POTASSIUM 3.7 mmol/L (3.5-5.1); SODIUM 146 mmol/L (135-144)
[2018-04-22] MEDS: PRAMIPEXOLE 0.25 MG TAB PO ×5 (06:00→23:32)
[2018-04-22] MEDS: PANTOPRAZOLE 40 MG INJ IV ×2 (06:06→17:26)
[2018-04-22] MEDS: DOCUSATE SODIUM 100 MG CAP PO (09:00)
[2018-04-22] MEDS: CARBIDOPA/LEVODOPA (25/100) TAB PO ×4 (10:51→20:39)
[2018-04-22] MEDS: AMANTADINE 100 MG CAP PO ×2 (10:51→20:39)
[2018-04-22] MEDS: ENTACAPONE 200 MG TAB PO ×4 (10:51→21:22)
[2018-04-22] MEDS: ATORVASTATIN 20 MG TAB PO (20:38)
[2018-04-22] MEDS: DOCUSATE SODIUM 10 MG/ML (10ML CUP) PO (20:38)
[2018-04-22] MEDS: TAMSULOSIN (SR) 0.4 MG CAP PO (20:39)
[2018-04-22] MEDS: MUPIROCIN 2% 22 GM OINT TOP (20:40)
[2018-04-23] MEDS: D5W + KCL 20 MEQ 1,000 ML IV (03:55)
[2018-04-23] MEDS: PRAMIPEXOLE 0.25 MG TAB PO ×3 (06:31→17:15)
[2018-04-23] MEDS: PANTOPRAZOLE 40 MG INJ IV (06:31)
[2018-04-23 07:17] LABS: ANION GAP 6 (5-13); BLOOD UREA NITROGEN 8 mg/dl (7-20); CALCIUM 8.1 mg/dl (8.4-10.2); CARBON DIOXIDE 25 mmol/L (21-31); CHLORIDE 106 mmol/L (97-110); CREATININE 0.55 mg/dl (0.61-1.24); GLUCOSE 110 mg/dl (70-220); SODIUM 137 mmol/L (135-144)
[2018-04-23] MEDS: AMANTADINE 100 MG CAP PO ×2 (08:35→21:00)
[2018-04-23] MEDS: DOCUSATE SODIUM 10 MG/ML (10ML CUP) PO ×2 (08:35→21:00)
[2018-04-23] MEDS: ENTACAPONE 200 MG TAB PO ×4 (08:35→21:00)
[2018-04-23] MEDS: CARBIDOPA/LEVODOPA (25/100) TAB PO ×4 (08:35→21:00)
[2018-04-23] MEDS: MUPIROCIN 2% 22 GM OINT TOP ×2 (08:35→21:12)
[2018-04-23] MEDS: PANTOPRAZOLE (EC) 40 MG TAB PO (17:15)
[2018-04-23] MEDS: ATORVASTATIN 20 MG TAB PO (21:00)
[2018-04-23] MEDS: TAMSULOSIN (SR) 0.4 MG CAP PO (21:00)
[2018-04-24] MEDS: PRAMIPEXOLE 0.25 MG TAB PO ×4 (05:25→17:50)
[2018-04-24] MEDS: PANTOPRAZOLE (EC) 40 MG TAB PO ×2 (05:42→17:53)
[2018-04-24] MEDS: AMANTADINE 100 MG CAP PO (08:40)
[2018-04-24] MEDS: DOCUSATE SODIUM 10 MG/ML (10ML CUP) PO (08:40)
[2018-04-24] MEDS: MUPIROCIN 2% 22 GM OINT TOP (08:40)
[2018-04-24] MEDS: CARBIDOPA/LEVODOPA (25/100) TAB PO ×3 (08:40→17:50)
[2018-04-24] MEDS: ENTACAPONE 200 MG TAB PO ×3 (08:40→17:50)
== END 2018-04-24 20:08 | disposition hospice, home (50) | DRG 388 ==
LOC: TEL 04-23 01:53 → E/R 16:37 → ICU 20:14
PROVIDERS: Legal Medicine
PROC: 30233N1 Transfusion of Nonautologous Red Blood Cells into Peripheral Vein, Percutaneous Approach (ICD-10-PCS; principal; 2018-04-20)
DX: K56.600 Partial intestinal obstruction, unspecified as to cause (principal); R57.1 Hypovolemic shock; K92.0 Hematemesis; G93.40 Encephalopathy, unspecified; K59.00 Constipation, unspecified; G20 Parkinson's disease; F02.80 Dementia in other diseases classified elsewhere, unspecified severity, without behavioral disturbance, psychotic disturbance, mood disturbance, and anxiety; E86.0 Dehydration; N40.0 Benign prostatic hyperplasia without lower urinary tract symptoms; E78.5 Hyperlipidemia, unspecified; D64.9 Anemia, unspecified; E11.9 Type 2 diabetes mellitus without complications; Z66 Do not resuscitate
CPT/HCPCS: 36415; 36430; 70450; 71045; 74176; 80048; 80053; 82962; 84484; 85025; 85610; 85730; 86644; 86850; 86900; 86901; 86920; 87081; 93005; 96365; 96366; 96375; 99291-25